=== PATIENT | male | born 1975 | race Caucasian/White ===

== ENCOUNTER 2018-02-14 22:39 | Emergency (ER) | payer OTHER ==
[~2018-02-14] VITALS: Ht 188 cm; Wt 115.8 kg
[~2018-02-14 22:39] MED LIST: Aspirin E.C. PO; ESCITALOPRAM OX20 MG PO; FLEXERIL10 MG PO; INDOCIN50 MG PO; NORCO 5/3251 TABLET PO; RANITIDINE HCL300 MG PO; TYLENOL WITH C1 EACH PO; ULTRAM50 MG PO
[2018-02-15] MEDS ORDERED: FLEXERIL10 MG PO (02:19)
[2018-02-15 03:09] VITALS: BP 123/78
== END 2018-02-15 03:10 | disposition home or self-care (01) ==
LOC: EME 22:39
DX: M79.662 Pain in left lower leg (principal); R25.2 Cramp and spasm; Z87.891 Personal history of nicotine dependence
CPT/HCPCS: 93971; 99281; 99284